=== PATIENT | female | born 1935 | race American Indian/Alaskan Native ===

== ENCOUNTER 2021-04-03 21:10 | Emergency (ER) | payer MEDICARE ==
--- NOTE | 2021-04-03 21:20 | Emergency Department Report ---
ED CPR HPI - General Stated Complaint: CARDIAC ARREST Time Seen by Provider: 04/03/21 21:16 Source: family, EMS Limitations: Other (cardiac arrest) - History of Present Illness Initial Comments: Chief complaint: Cardiac arrest HPI this is an 86-year-old female who presents in cardiac arrest via EMS. Family found patient unresponsive on the porch. She was last seen alive 1 hour prior to family's call to 911. Patient was intubated with 6-0 ETT per EMS. Given 3 doses of epinephrine, 1 dose of sodium bicarbonate. Patient's initial rhythm was asystole. Patient remained in asystole in spite 22 minutes of ACLS resuscitation and CPR. Lens Polisher Hand informed daughter that patient did not have a pulse or spontaneous respirations. Daughter wanted continued resuscitation attempts. Additional history obtained from daughter who is caregiver. Patient was in her normal state of health today. Daughter went to the dentist. She found her mother unresponsive on the porch. Patient did not have any recent illnesses or hospitalization. 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 She understood went to rehab 2 years ago after being admitted for CVA at [facility]. Patient also has a history of diabetes mellitus and cardiac disease. No recent surgery. 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 She has 2 children. 1 daughter is alive. The other child is . She has a grandson and a great granddaughter. Complaint: found unresponsive Place: home Initial Findings in the Field: unresponsive, other rhythm (Asystole) ROSC in the Field: No Associated Injuries: No Associated Symptoms: other (No reported previous symptoms) Treatments Prior to Arrival: intubation, epinephrine mgs # (3 doses of epinephrine), sodium bicarbonate (1 dose of sodium bicarbonate) ED Review of Systems ROS: Stated complaint: CARDIAC ARREST Other details as noted in HPI Comment: Unobtainable due to pts medical conditions (Cardiac arrest) ED Past Medical Hx - Past Medical History Previous Medical History?: Yes Hx CVA: Yes Hx Diabetes: Yes Additional medical history: Cardiac disease - Surgical History Additional Surgical History: No recent surgery - Family History Family history: other (Noncontributory) - Social History Smoking Status: Never Smoker Substance Use Type: None ED Physical Exam - General General appearance: other (Lifeless no spontaneous respirations no movement) - Head Head exam: Present: atraumatic, normocephalic - Eye Eye exam: Present: other (Dried corneas eyelids open 6 mm nonreactive pupils) - ENT ENT exam: Present: mucous membranes dry, other (ETT in place) - Neck Neck exam: Present: normal inspection - Respiratory Respiratory exam: Present: other (Equal breath sounds bilaterally with ventilation through ETT and Ambu bag, no spontaneous respiration) - Cardiovascular Cardiovascular Exam: Present: other (No pulse, no auscultated heart sounds) - GI/Abdominal GI/Abdominal exam: Present: soft, other (Concave stomach patient cachectic). Absent: distended - Extremities Exam Extremities exam: Present: normal inspection, other (No traumatic deformity) - Neurological Exam Neurological exam: Present: other (Lifeless no spontaneous movement) - Psychiatric Psychiatric exam: Present: other (Lifeless no spontaneous movement) - Skin Skin exam: Present: pallor ED Medical Decision Making - Medical Decision Making This is an 85-year-old female who presents in cardiac arrest. In spite resuscitation attempts, patient remained in asystole. Patient received resuscitation 22 minutes of ACLS including intubation, epinephrine and sodium bicarbonate. Patient received optimal care per EMS. Further resuscitation deemed futile. Time of 2110 Critical care attestation.: If time is entered above; I have spent that time in minutes in the direct care of this critically ill patient, excluding procedure time. ED Disposition Clinical Impression: Cardiac arrest Disposition: DC-20 Is pt being admited?: No Does the pt Need Aspirin: No Condition: Stable Time of Disposition: 21:11
[2021-04-03 22:22] VITALS: BP 00/00
== END 2021-04-04 01:00 ==
LOC: ED 21:10
DX: I46.9 Cardiac arrest, cause unspecified (principal); E11.9 Type 2 diabetes mellitus without complications; Z86.73 Personal history of transient ischemic attack (TIA), and cerebral infarction without residual deficits